=== PATIENT | male | born 1990 | race Caucasian/White ===

== ENCOUNTER 2016-11-25 16:14 | Emergency (ER) | payer MEDICARE ==
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
[2016-11-25 19:30] LABS: Alanine Aminotransferase 19 units/L (7-56); Albumin 5.1 g/dL (3.9-5); Albumin/Globulin Ratio 1.5 %; Alkaline Phosphatase 85 units/L (35-129); Anion Gap 21 mmol/L; BUN/Creatinine Ratio 25.55; Blood Urea Nitrogen 23 mg/dL (9-20); Calcium 10.2 mg/dL (8.4-10.2); Carbon Dioxide 25 mmol/L (22-30); Chloride 97.4 mmol/L (98-107); Glucose 78 mg/dL (75-100); Potassium 4.6 mmol/L (3.6-5.0); Sodium 139 mmol/L (137-145); Total Protein 8.6 g/dL (6.3-8.2)
[2016-11-25 19:49] LABS: Basophils % (Auto) 0.7 % (0.0-1.8); Eosinophils % (Auto) 2.1 % (0.0-4.3); Hematocrit 44.9 % (35.5-45.6); Hemoglobin 15.3 gm/dl (11.8-15.2); Mean Corpuscular HGB Conc 34 % (32-34); Mean Corpuscular Hemoglobin 30 pg (28-32); Mean Corpuscular Volume 87 fl (84-94); Platelet Count 282 K/mm3 (140-440); Red Blood Count 5.18 M/mm3 (3.65-5.03); Red Cell Distribution Width 14.3 % (13.2-15.2); White Blood Count 8.8 K/mm3 (4.5-11.0)
[2016-11-25] MEDS ORDERED: XANAX PO ONE (20:53)
--- NOTE | 2016-11-25 20:54 | Emergency Department Report ---
ED General Adult HPI - General Chief complaint: Psych Stated complaint: OD ON ADDERALL Time Seen by Provider: 11/25/16 18:39 Source: patient, EMS (ems notes not available at time of chart dictation), RN notes reviewed Mode of arrival: Ambulatory Limitations: No Limitations - History of Present Illness Initial comments: This is a 25-year-old male, and he is previously unknown to me. Past medical history includes schizophrenia, and chronic pain. He reports his medications include Adderall, 30 mg twice daily, immediate release, last took his dose Friday. He also takes Suboxone, 8 mg, and Klonopin, 2 mg when necessary. The patient was brought to the ER by EMS for concern for Adderall overdose. Patient reported that his last ingestion was Friday. He did not get Adderall Friday morning or Friday evening. He denies homicidality, suicidality , access to guns or firearms, and hallucinations. He denies headache, neck pain , chest pain, abdominal pain or shortness of breath. He reports adamantly that he did not attempt overdose. He has no complaints at this time, and wants to go home. Improves with: none Worsens with: none Associated Symptoms: denies other symptoms - Related Data Allergies Allergy/AdvReac Type Severity Reaction Status Date / Time No Known Allergies Allergy Verified 11/25/16 18:46 ED Review of Systems ROS: Stated complaint: OD ON ADDERALL Other details as noted in HPI Constitutional: denies: fever, malaise Eyes: denies: vision change ENT: denies: epistaxis Respiratory: denies: cough Cardiovascular: denies: chest pain Gastrointestinal: denies: abdominal pain Genitourinary: denies: urgency, dysuria Musculoskeletal: denies: back pain Skin: denies: rash, lesions Neurological: denies: headache, weakness Psychiatric: anxiety ED Past Medical Hx - Past Medical History Previous Medical History?: Yes Hx Psychiatric Treatment: Yes (shizophrenia) Additional medical history: back - Social History Smoking Status: Current Every Day Smoker Substance Use Type: None ED Physical Exam - General Limitations: No Limitations General appearance: alert, in no apparent distress - Head Head exam: Present: atraumatic, normocephalic - Eye Eye exam: Present: normal appearance, PERRL, EOMI. Absent: nystagmus - ENT ENT exam: Present: normal exam, normal orophraynx, mucous membranes moist, normal external ear exam - Neck Neck exam: Present: normal inspection, full ROM. Absent: tenderness, meningismus - Respiratory Respiratory exam: Present: normal lung sounds bilaterally. Absent: respiratory distress, wheezes, rales, rhonchi, stridor, chest wall tenderness - Cardiovascular Cardiovascular Exam: Present: regular rate, normal rhythm, normal heart sounds. Absent: bradycardia, tachycardia, irregular rhythm, systolic murmur, diastolic murmur, rubs, gallop - GI/Abdominal GI/Abdominal exam: Present: soft, normal bowel sounds. Absent: distended, tenderness, guarding, rebound, rigid, pulsatile mass - Rectal Rectal exam: Present: deferred - Extremities Exam Extremities exam: Present: normal inspection, full ROM, normal capillary refill. Absent: tenderness, pedal edema, joint swelling, calf tenderness - Back Exam Back exam: Present: normal inspection, full ROM. Absent: tenderness, CVA tenderness (R), CVA tenderness (L), muscle spasm, paraspinal tenderness, vertebral tenderness - Neurological Exam Neurological exam: Present: alert, oriented X3, normal gait, other (Extraocular movements intact. Tongue midline. No facial droop. Facial sensation intact to light touch in the V1, V2, V3 distribution bilaterally. 5 and 5 strength in 4 extremities.. Sensation is intact to light touch in 4 extremities.). Absent : motor sensory deficit - Psychiatric Psychiatric exam: Present: anxious. Absent: homicidal ideation, suicidal ideation - Skin Skin exam: Present: warm, dry, intact, normal color. Absent: rash, cyanosis, diaphoretic, erythema, urticaria, vesicles ED Course Vital Signs 11/25/16 11/25/16 18:40 23:39 Temperature 98.6 F 98.1 F Pulse Rate 100 H 94 H Respiratory 16 16 Rate Blood Pressure 138/95 Blood Pressure 114/71 [Left] O2 Sat by Pulse 100 97 Oximetry ED Medical Decision Making - Lab Data Result diagrams: 11/25/16 18:52 11/25/16 18:52 Vital Signs 11/25/16 11/25/16 18:40 23:39 Temperature 98.6 F 98.1 F Pulse Rate 100 H 94 H Respiratory 16 16 Rate Blood Pressure 138/95 Blood Pressure 114/71 [Left] O2 Sat by Pulse 100 97 Oximetry Vital Signs 11/25/16 11/25/16 18:40 23:39 Temperature 98.6 F 98.1 F Pulse Rate 100 H 94 H Respiratory 16 16 Rate Blood Pressure 138/95 Blood Pressure 114/71 [Left] O2 Sat by Pulse 100 97 Oximetry Labs 11/25/16 11/25/16 11/25/16 18:52 18:52 18:52 WBC 8.8 RBC 5.18 H Hgb 15.3 H Hct 44.9 MCV 87 MCH 30 MCHC 34 RDW 14.3 Plt Count 282 Lymph % (Auto) 24.7 Toole % (Auto) 9.7 H Eos % (Auto) 2.1 Baso % (Auto) 0.7 Lymph # 2.2 Toole # 0.9 H Eos # 0.2 Baso # 0.1 Seg Neutrophils % 62.8 Seg Neutrophils # 5.5 Sodium 139 Potassium 4.6 Chloride 97.4 L Carbon Dioxide 25 Anion Gap 21 BUN 23 H Creatinine 0.9 Estimated GFR > 60 BUN/Creatinine Ratio 25.55 Glucose 78 Calcium 10.2 Total Bilirubin 0.60 AST 25 ALT 19 Alkaline Phosphatase 85 Total Creatine Kinase Total Protein 8.6 H Albumin 5.1 H Albumin/Globulin Ratio 1.5 Urine Color Urine Turbidity Urine pH Ur Specific [place] Urine Protein Urine Glucose (UA) Urine Ketones Urine Blood Urine Nitrite Urine Bilirubin Urine Urobilinogen Ur Leukocyte Esterase Urine WBC (Auto) Urine RBC (Auto) Urine Mucus Salicylates Urine Opiates Screen Urine Methadone Screen Acetaminophen Ur Barbiturates Screen Ur Phencyclidine Scrn Ur Amphetamines Screen U Benzodiazepines Scrn Urine Cocaine Screen U Marijuana (THC) Screen Drugs of Abuse Note Plasma/Serum Alcohol < 0.01 11/25/16 11/25/16 11/25/16 18:52 18:52 18:52 WBC RBC Hgb Hct MCV MCH MCHC RDW Plt Count Lymph % (Auto) Toole % (Auto) Eos % (Auto) Baso % (Auto) Lymph # Toole # Eos # Baso # Seg Neutrophils % Seg Neutrophils # Sodium Potassium Chloride Carbon Dioxide Anion Gap BUN Creatinine Estimated GFR BUN/Creatinine Ratio Glucose Calcium Total Bilirubin AST ALT Alkaline Phosphatase Total Creatine Kinase 271 H Total Protein Albumin Albumin/Globulin Ratio Urine Color Urine Turbidity Urine pH Ur Specific [place] Urine Protein Urine Glucose (UA) Urine Ketones Urine Blood Urine Nitrite Urine Bilirubin Urine Urobilinogen Ur Leukocyte Esterase Urine WBC (Auto) Urine RBC (Auto) Urine Mucus Salicylates < 0.3 L Urine Opiates Screen Urine Methadone Screen Acetaminophen < 15.0 Ur Barbiturates Screen Ur Phencyclidine Scrn Ur Amphetamines Screen U Benzodiazepines Scrn Urine Cocaine Screen U Marijuana (THC) Screen Drugs of Abuse Note Plasma/Serum Alcohol 11/25/16 11/25/16 21:07 21:07 WBC RBC Hgb Hct MCV MCH MCHC RDW Plt Count Lymph % (Auto) Toole % (Auto) Eos % (Auto) Baso % (Auto) Lymph # Toole # Eos # Baso # Seg Neutrophils % Seg Neutrophils # Sodium Potassium Chloride Carbon Dioxide Anion Gap BUN Creatinine Estimated GFR BUN/Creatinine Ratio Glucose Calcium Total Bilirubin AST ALT Alkaline Phosphatase Total Creatine Kinase Total Protein Albumin Albumin/Globulin Ratio Urine Color Yellow Urine Turbidity Clear Urine pH 6.0 Ur Specific [place] 1.029 Urine Protein 30 mg/dl Urine Glucose (UA) Neg Urine Ketones 20 Urine Blood Neg Urine Nitrite Neg Urine Bilirubin Neg Urine Urobilinogen < 2.0 Ur Leukocyte Esterase Neg Urine WBC (Auto) 1.0 Urine RBC (Auto) 11.0 Urine Mucus 1+ Salicylates Urine Opiates Screen Presumptive negative Urine Methadone Screen Presumptive negative Acetaminophen Ur Barbiturates Screen Presumptive negative Ur Phencyclidine Scrn Presumptive negative Ur Amphetamines Screen Presumptive positive U Benzodiazepines Scrn Presumptive positive Urine Cocaine Screen Presumptive negative U Marijuana (THC) Screen Presumptive negative Drugs of Abuse Note Disclamer Plasma/Serum Alcohol - EKG Data -: EKG Interpreted by Al EKG shows normal: sinus rhythm, axis, intervals, QRS complexes, ST-T waves - Medical Decision Making Differential diagnosis: Mood disorder, medical clearance, Adderall ingestion Assessment and plan: 25-year-old male who is not homicidal or suicidal, and reports he is not taking Adderall since Friday. He reports that he is taking Adderall immediate release. He is alert and oriented 3, with a GCS of 15, and an NIH score of 0. He is clinically sober at this time, and walks with a steady gait. Slightly anxious secondary to not having his Suboxone. Highly doubt Adderall overdose. Laboratory studies are unremarkable. Urine toxicology study is appreciated, positive amphetamines likely secondary to chronic Adderall use, positive benzodiazepines likely secondary to Klonopin. In the very unlikely event that the patient did overdose, he has been observed in the ER for almost 8 hours. As per discussion with the [facility], Adderall immediate release takes one hour, and the patient would not require observation for a period of greater than 6 hours. The patient was also seen independently by the crisis team, Neelam, who independently agreed that the patient did not merit 1013 criteria. The patient will be discharged back home, and he can follow up with his outpatient psychiatrist. His EKG was unremarkable. Critical care attestation.: If time is entered above; I have spent that time in minutes in the direct care of this critically ill patient, excluding procedure time. ED Disposition Clinical Impression: General medical exam Disposition: DC-01 TO HOME OR SELFCARE Is pt being admited?: No Does the pt Need Aspirin: No Condition: Stable Instructions: Mood Disorders (ED) Additional Instructions: Continue current outpatient medications. Follow up with a primary care doctor or psychiatrist within the next 7-10 days. Return to the ER right away with fevers, chills, chest pain, shortness of breath, homicidality, suicidality, confusion, change in mental status, inability to tolerate liquid feeds. Referrals: PRIMARY MD UBALDO [Primary Care Provider] - 3-5 Days ANGY PELAEZ MD [Staff Physician] - 3-5 Days [facility] [Outside] - 3-5 Days
[2016-11-25 21:44] LABS: Urine Drugs of Abuse Note Disclamer
[2016-11-25 21:58] LABS: Bilirubin,Urine NEG (Negative); Blood,Urine NEG (Negative); Ketones,Urine 20 mg/dL (Negative); Leukocyte Esterase,Urine NEG (Negative); Mucus,Urine 1+ /HPF; Nitrite,Urine NEG (Negative); Urobilinogen,Urine < 2.0 mg/dL (<2.0)
[2016-11-25 23:41] VITALS: BP 114/71
== END 2016-11-26 02:20 | disposition home or self-care (01) ==
LOC: EEVIPCON 16:14 → ED 16:14
DX: T43.621A Poisoning by amphetamines, accidental (unintentional), initial encounter (principal); F20.9 Schizophrenia, unspecified; F17.200 Nicotine dependence, unspecified, uncomplicated; Y92.89 Other specified places as the place of occurrence of the external cause
CPT/HCPCS: 36415; 80053; 80307; 81001; 82550; 85025; 93005; 93010; 99284; G0480; 80320

== ENCOUNTER 2016-11-26 15:24 | Emergency (ER) | payer MEDICARE ==
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
[2016-11-26 16:26] LABS: Basophils % (Auto) 0.7 % (0.0-1.8); Eosinophils % (Auto) 1.3 % (0.0-4.3); Hematocrit 43.7 % (35.5-45.6); Hemoglobin 15.2 gm/dl (11.8-15.2); Mean Corpuscular HGB Conc 35 % (32-34); Mean Corpuscular Hemoglobin 30 pg (28-32); Mean Corpuscular Volume 86 fl (84-94); Platelet Count 271 K/mm3 (140-440); Red Cell Distribution Width 14.1 % (13.2-15.2); White Blood Count 9.5 K/mm3 (4.5-11.0)
[2016-11-26 16:35] LABS: Alanine Aminotransferase 20 units/L (7-56); Albumin/Globulin Ratio 1.6 %; Alkaline Phosphatase 83 units/L (35-129); Anion Gap 24 mmol/L; BUN/Creatinine Ratio 26.66; Blood Urea Nitrogen 24 mg/dL (9-20); Calcium 9.9 mg/dL (8.4-10.2); Carbon Dioxide 21 mmol/L (22-30); Chloride 98.6 mmol/L (98-107); Glucose 90 mg/dL (75-100); Potassium 3.9 mmol/L (3.6-5.0); Sodium 140 mmol/L (137-145); Total Protein 8.2 g/dL (6.3-8.2)
[2016-11-26 17:01] LABS: Urine Drugs of Abuse Note Disclamer
[2016-11-26 17:22] LABS: Bilirubin,Urine NEG (Negative); Blood,Urine NEG (Negative); Ketones,Urine 20 mg/dL (Negative); Leukocyte Esterase,Urine NEG (Negative); Mucus,Urine 3+ /HPF; Nitrite,Urine NEG (Negative); Urobilinogen,Urine < 2.0 mg/dL (<2.0)
[2016-11-26] MEDS ORDERED: SUBOXONE 2 MG-0.5 MG SL ONE (19:20)
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
[2016-11-27 12:20] VITALS: BP 122/67
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
== END 2016-11-27 16:40 ==
LOC: ED 15:24 → EEVIPCON 15:24 → ED 11-27 16:40
DX: R45.851 Suicidal ideations (principal); F20.9 Schizophrenia, unspecified; F17.200 Nicotine dependence, unspecified, uncomplicated
CPT/HCPCS: 36415; 80053; 80307; 81001; 85025; 99285; G0480; 80320

== ENCOUNTER 2017-06-04 21:37 | Emergency (ER) | payer MEDICARE ==
[2017-06-04 23:30] VITALS: BP 123/83
[2017-06-04] MEDS ORDERED: TYLENOL ONE (23:34)
[2017-06-04] MEDS ORDERED: TYLENOL PO ONE (23:36)
[2017-06-04 23:54] LABS: Basophils # (Auto) 0.1 K/mm3 (0.0-0.1); Basophils % (Auto) 0.6 % (0.0-1.8); Eosinophils # (Auto) 0.4 K/mm3 (0.0-0.4); Eosinophils % (Auto) 4.8 % (0.0-4.3); Hematocrit 45.6 % (35.5-45.6); Hemoglobin 14.9 gm/dl (11.8-15.2); Lymphocytes # (Auto) 4.2 K/mm3 (1.2-5.4); Lymphocytes % (Auto) 46.7 % (13.4-35.0); Mean Corpuscular HGB Conc 33 % (32-34); Mean Corpuscular Hemoglobin 29 pg (28-32); Mean Corpuscular Volume 89 fl (84-94); Monocytes # (Auto) 0.7 K/mm3 (0.0-0.8); Monocytes % (Auto) 7.5 % (0.0-7.3); Platelet Count 255 K/mm3 (140-440); Red Blood Count 5.11 M/mm3 (3.65-5.03); Red Cell Distribution Width 13.6 % (13.2-15.2)
[2017-06-05 00:26] LABS: Alanine Aminotransferase 18 units/L (7-56); Albumin 4.3 g/dL (3.9-5); BUN/Creatinine Ratio 11; Blood Urea Nitrogen 8 mg/dL (9-20); Calcium 9.4 mg/dL (8.4-10.2); Hemolysis Index 7
[2017-06-05] MEDS ORDERED: NACL 0.9% 1000 ML 1,000 ML IV ONE (03:44)
[2017-06-05] MEDS ORDERED: TORADOL IV ONE (03:44)
[2017-06-05] MEDS ORDERED: ZOFRAN IV ONE (03:44)
--- NOTE | 2017-06-05 03:46 | Emergency Department Report ---
ED Abdominal Pain HPI - General Chief Complaint: Abdominal Pain Stated Complaint: BODYACHE Time Seen by Provider: 06/05/17 03:15 Source: patient Mode of arrival: Ambulatory Limitations: No Limitations - History of Present Illness Initial Comments: This is a 26-year-old presents to ED complaining now right quadrant abdominal pain 2 weeks. Patient states symptoms worsen the past couple days. Patient states he has a history of hepatitis C for the past 10 years. Patient's this is not on any medication as he has not followed up with is [facility] in years. He admits mild nausea but no vomiting He denies fevers/chills/chest pains or shortness of breath/diarrhea constipation MD Complaint: abdominal pain -: week(s) (2) Location: RUQ Radiation: none Migration to: no migration Severity: moderate Severity scale (0 -10): 6 Quality: aching, dull Consistency: intermittent Improves With: nothing Context: other (Hx of hepatitis C x 10 years, not on medication) Associated Symptoms: nausea. denies: vomiting, diarrhea, constipation, dysuria - Related Data Previous Rx's Medication Instructions Recorded Last Taken Type Naproxen [Naprosyn] 500 mg PO BID #30 tablet 06/05/17 Unknown Rx Ondansetron [Zofran Odt] 4 mg PO Q8HR #20 tab.rapdis 06/05/17 Unknown Rx Allergies Allergy/AdvReac Type Severity Reaction Status Date / Time No Known Allergies Allergy Verified 11/25/16 18:46 ED Review of Systems ROS: Stated complaint: BODYACHE Other details as noted in HPI Constitutional: denies: chills, fever Eyes: denies: eye pain, eye discharge, vision change ENT: denies: ear pain, throat pain Respiratory: denies: cough, shortness of breath, wheezing Cardiovascular: denies: chest pain, palpitations Endocrine: no symptoms reported Gastrointestinal: abdominal pain. 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,DJD, Hep C - Surgical History Past Surgical History?: Yes Additional Surgical History: Leg, Brain, Lithotrispy - Social History Smoking Status: Current Every Day Smoker Substance Use Type: None - Medications Home Medications: Home Medications Medication Instructions Recorded Confirmed Last Taken Type Naproxen [Naprosyn] 500 mg PO BID #30 tablet 06/05/17 Unknown Rx Ondansetron [Zofran Odt] 4 mg PO Q8HR #20 tab.rapdis 06/05/17 Unknown Rx ED Physical Exam - General Limitations: No Limitations General appearance: alert, in no apparent distress - Head Head exam: Present: atraumatic, normocephalic - Eye Eye exam: Present: normal appearance - ENT ENT exam: Present: mucous membranes moist - Neck Neck exam: Present: normal inspection - Respiratory Respiratory exam: Present: normal lung sounds bilaterally. Absent: respiratory distress, wheezes, rales - Cardiovascular Cardiovascular Exam: Present: regular rate, normal rhythm. Absent: systolic murmur, diastolic murmur, rubs, gallop - GI/Abdominal GI/Abdominal exam: Present: soft, normal bowel sounds. Absent: distended, tenderness, guarding, rebound, rigid, organomegaly, pulsatile mass - Rectal Rectal exam: Present: deferred - Extremities Exam Extremities exam: Present: normal inspection - Back Exam Back exam: Present: normal inspection, full ROM. Absent: CVA tenderness (R), CVA tenderness (L) - Neurological Exam Neurological exam: Present: alert, oriented X3, CN II-XII intact, normal gait - Psychiatric Psychiatric exam: Present: normal affect, normal mood - Skin Skin exam: Present: warm, dry, intact, normal color. Absent: rash ED Course Vital Signs 06/04/17 06/04/17 23:24 23:25 Temperature 98.3 F 98.3 F Pulse Rate 74 74 Respiratory 18 16 Rate Blood Pressure 123/83 Blood Pressure 122/83 [Right] O2 Sat by Pulse 99 99 Oximetry ED Medical Decision Making - Lab Data Result diagrams: 06/04/17 23:38 06/04/17 23:38 - Radiology Data Radiology results: report reviewed, image reviewed FINAL REPORT EXAM: CT ABDOMEN PELVIS WO CON HISTORY: RT MID ABD PAIN TECHNIQUE: Routine axial imaging was obtained of the abdomen and pelvis without oral or IV contrast. Sagittal and coronal reconstructions were reviewed. FINDINGS: The lung bases are clear. Pleural fluid is not seen. The gallbladder is contracted. The liver and biliary tree appear normal. The pancreas, spleen, and adrenal glands appear normal. The kidneys show no evidence of stones or hydronephrosis. There are small cortical cysts in both kidneys measuring up to 16 millimeters in diameter. The bowel loops are normal in caliber and course. The appendix is not enlarged. There is no evidence of free fluid or adenopathy. There is non specific radiopaque material in several bowel loops. In the pelvis the prostate gland and bladder appear normal. The skeletal structures appear well maintained. IMPRESSION: No acute process in the abdomen and pelvis. No evidence of renal stones or hydronephrosis. Benign cortical cysts in both kidneys. Normal appendix. Transcribed By: RB Dictated By: NEVIN GUAJARDO MD Electronically Authenticated By: NEVIN GUAJARDO MD Signed Date/Time: 06/05/17 0032 - Medical Decision Making 26-year-old male presents with gastroenteritis ED course: CBC, CMP, urinalysis ordered. All labs within normal limits , BUN/creatinine slightly low, will replenishment with fluids CT scan of the abdomen ordered CT scan normal CT reported above I discussed findings with the patient. Patient received 1 L of fluids and Zofran in ED. She also received Tylenol for pain Patient tolerated PO fluids and add crackers and snacks in the ED. I discussed patient to follow up with primary care physician. Discussed the patient to make sure he follows up with [facility] concerning his hepatitis C diagnoses Vital signs are stable patient is in no acute distress He reports feeling better Critical care attestation.: If time is entered above; I have spent that time in minutes in the direct care of this critically ill patient, excluding procedure time. ED Disposition Clinical Impression: Gastroenteritis Abdominal pain Qualifiers: Abdominal location: generalized Qualified Code(s): R10.84 - Generalized abdominal pain Disposition: - TO HOME OR SELFCARE Is pt being admited?: No Does the pt Need Aspirin: No Condition: Stable Instructions: Gastroenteritis (ED), Gas and Bloating (ED), Abdominal Pain (ED) Additional Instructions: Make sure to follow up with the primary care physician as discussed. Also follow up with her [facility] as referred concerning your hepatitis C dx Take all your medications as you've been prescribed. If you have any worsening symptoms or develop new symptoms please return to ED immediately. Prescriptions: Naproxen [Naprosyn] 500 mg PO BID #30 tablet Ondansetron [Zofran Odt] 4 mg PO Q8HR #20 tab.rapdis Referrals: PRIMARY CARE, [Primary Care Provider] - 3-5 Days THI DUNCAN MD [Staff Physician] - 3-5 Days EMILIE BAL MD [Staff Physician] - 3-5 Days ALLIE CARRASQUILLO MD [Staff Physician] - 3-5 Days Forms: Work/School Release Form(ED) Time of Disposition: 06:03
--- NOTE | 2017-06-05 04:36 | Cat Scan Report ---
FINAL REPORT EXAM: CT ABDOMEN PELVIS WO CON HISTORY: RT MID ABD PAIN TECHNIQUE: Routine axial imaging was obtained of the abdomen and pelvis without oral or IV contrast. Sagittal and coronal reconstructions were reviewed. FINDINGS: The lung bases are clear. Pleural fluid is not seen. The gallbladder is contracted. The liver and biliary tree appear normal. The pancreas, spleen, and adrenal glands appear normal. The kidneys show no evidence of stones or hydronephrosis. There are small cortical cysts in both kidneys measuring up to 16 millimeters in diameter. The bowel loops are normal in caliber and course. The appendix is not enlarged. There is no evidence of free fluid or adenopathy. There is non specific radiopaque material in several bowel loops. In the pelvis the prostate gland and bladder appear normal. The skeletal structures appear well maintained. IMPRESSION: No acute process in the abdomen and pelvis. No evidence of renal stones or hydronephrosis. Benign cortical cysts in both kidneys. Normal appendix.
[2017-06-05 05:05] LABS: Bilirubin,Urine NEG (Negative); Blood,Urine NEG (Negative); Color,Urine Straw (Yellow); Nitrite,Urine NEG (Negative); Protein,Urine <15 mg/dL mg/dL (Negative); RBC,Urine < 1.0 /HPF (0.0-6.0); Urobilinogen,Urine < 2.0 mg/dL (<2.0)
[2017-06-05 05:26] LABS: WBC,Urine < 1.0 /HPF (0.0-6.0)
== END 2017-06-05 07:33 | disposition home or self-care (01) ==
LOC: ED 21:37
DX: K52.9 Noninfective gastroenteritis and colitis, unspecified (principal); F17.200 Nicotine dependence, unspecified, uncomplicated
CPT/HCPCS: 36415; 74176; 80053; 81001; 85025; 96361; 96374; 96375; 99284; J1885; J2405; J7030